=== PATIENT | male | born 1955 | race Asian ===

== ENCOUNTER 2018-02-21 05:37 | Emergency (ER) | payer OTHER ==
[~2018-02-21] VITALS: Ht 175.3 cm; Wt 61.7 kg
[2018-02-21 05:54] VITALS: Ht 175.3 cm; Wt 61.7 kg
[2018-02-21 06:49] VITALS: BP 138/89
== END 2018-02-21 06:49 | disposition home or self-care (01) ==
LOC: ED 05:37
DX: S62.316A Displaced fracture of base of fifth metacarpal bone, right hand, initial encounter for closed fracture (principal); I10 Essential (primary) hypertension; E78.00 Pure hypercholesterolemia, unspecified; Y04.0XXA Assault by unarmed brawl or fight, initial encounter